=== PATIENT | female | born 1950 | race Caucasian/White ===

== ENCOUNTER 2018-01-09 16:15 | Emergency (ER) | payer MEDICARE ==
[~2018-01-09] VITALS: Ht 162.6 cm; Wt 88.5 kg
[2018-01-09] MEDS ORDERED: SYNTHROID50 MCG PO (16:34)
[2018-01-09] MEDS ORDERED: TUMS PO (16:34)
[2018-01-09] MEDS ORDERED: UNICOMPLEX M TA1 TA1 PO (16:34)
[2018-01-09] MEDS ORDERED: ASPIR 8181 MG PO (16:34)
[2018-01-09] MEDS ORDERED: PROTONIX40 M1 PO (16:35)
[2018-01-09] MEDS ORDERED: ZOLOFT 50 MG TA50 M1 PO (16:35)
[2018-01-09] MEDS ORDERED: MICROZIDE12.5 MG PO (16:35)
[2018-01-09 16:53] LABS: ABSOLUTE BASOPHILS 0.1 thou/uL (0.0-0.2); ABSOLUTE EOSINOPHILS 0.2 thou/uL (0.0-0.7); ABSOLUTE MONOCYTES 0.8 thou/uL (0.0-1.2); ABSOLUTE NEUTROPHILS 6.9 thou/uL (1.6-8.1); BASOPHILS 0.8 %; EOSINOPHILS 1.9 %; HEMATOCRIT 41.6 % (37.0-47.0); LYMPHOCYTES 27.4 %; MCH 30.1 pg (26.0-34.0); MCHC 33.8 g/dL (28.0-37.0); MCV 89.2 fL (80.0-100.0); MONOCYTES 7.6 %; MPV 8.3 fl. (7.2-11.1); NUCLEATED RBCS 0 /100WBC; PLATELET COUNT* 255 thou/uL (150-400); POLYS 62.3 %; RBC 4.66 mil/uL (4.20-5.00); RDW-CV 13.7 % (10.5-14.5)
[2018-01-09 16:59] LABS: CALCIUM 9.3 mg/dL (8.5-10.1); CREATININE 0.8 mg/dL (0.6-1.3); POTASSIUM 3.4 mmol/L (3.5-5.1)
[2018-01-09 17:08] LABS: ALBUMIN 3.8 g/dL (3.4-5.0); TOTAL BILIRUBIN 1.6 mg/dL (<0.1-1.0); TOTAL PROTEIN 8.1 g/dL (6.4-8.2)
[2018-01-09] MEDS ORDERED: HYDROCODONE-AP1 EAC6 PO (18:24)
[2018-01-09 18:47] VITALS: BP 140/58
== END 2018-01-09 18:47 | disposition home or self-care (01) ==
LOC: M.ERS 16:15
PROVIDERS: Emergency Medicine Emergency Medical Services
DX: K04.7 Periapical abscess without sinus (principal); R06.02 Shortness of breath; E03.9 Hypothyroidism, unspecified; F32.9 Major depressive disorder, single episode, unspecified; Z96.653 Presence of artificial knee joint, bilateral; Z88.1 Allergy status to other antibiotic agents